=== PATIENT | male | born 1960 | race Caucasian/White ===

== ENCOUNTER 2016-10-13 19:08 | Emergency (ER) | payer OTHER ==
[~2016-10-13 19:08] MED LIST: FLEXERIL10 M1 PO; VOLTAREN75 MG PO
== END 2016-10-13 20:50 | disposition home or self-care (01) ==
LOC: CED 19:08
DX: L73.9 Follicular disorder, unspecified (principal); F17.200 Nicotine dependence, unspecified, uncomplicated; Z79.899 Other long term (current) drug therapy
CPT/HCPCS: 99282